=== PATIENT | male | born 1950 | race Asian ===

== ENCOUNTER 2016-11-16 04:07 | Inpatient (IN) | payer OTHER ==
[~2016-11-16] VITALS: Ht 165.1 cm; Wt 78.0 kg
[~2016-11-16 04:07] MED LIST: AMLO2.5T PO; AMLO5TAB2 PO; CELE100C PO; CLOT15CR6; DIAZ2TAB; FINA5TAB4 PO; LOSA25TA5 PO; PHEN-494 PO; PRAV40TA2 PO; SAXA5TAB PO; SULF1TAB3 PO; TRIA1CAP3 PO
[2016-11-16] MEDS ORDERED: SAXA5TAB PO (05:01)
[2016-11-16] MEDS ORDERED: MINO100C PO (05:01)
[2016-11-16] MEDS ORDERED: EZET10TA3 PO (05:01)
[2016-11-16] MEDS ORDERED: AZIT250T PO (05:01)
[2016-11-16] MEDS ORDERED: VALS40TA2 PO (05:01)
[2016-11-16] MEDS ORDERED: CARV6.2512 PO (05:01)
[2016-11-16] MEDS ORDERED: ONDANSETRON 2MG/ML, 2ML ONE (05:03)
[2016-11-16] MEDS ORDERED: SODIUM CHLORIDE 0.9% 1,000 ML IV ONE (05:22)
[2016-11-16] MEDS ORDERED: SODIUM CHLORIDE 0.9% 1,000ML IVBOLUS ONE (05:30)
[2016-11-16] MEDS ORDERED: ONDANSETRON 2MG/ML, 2ML IVP ONE (05:30)
[2016-11-16] MEDS ORDERED: SODIUM CHLORIDE FLUSH 10ML SYR IVF ONE (05:30)
[2016-11-16 06:19] LABS: ASPARTATE AMINO TRANSFERASE 38 U/L (15-37); BLOOD UREA NITROGEN 9 mg/dL (7-18)
[2016-11-16 06:24] LABS: IS PT STATUS REG ER OR PRE ER? YES
[2016-11-16] MEDS ORDERED: POTASSIUM CHLORIDE 20 MEQ TAB.ER.PRT ONE (06:52)
[2016-11-16] MEDS ORDERED: POTASSIUM CHLORIDE 20 MEQ TAB.ER.PRT PO ONE (07:00)
[2016-11-16 07:55] VITALS: BP 129/72
[2016-11-16] MEDS ORDERED: DIAZEPAM 2 MG TABLET PO PRN (10:00)
[2016-11-16] MEDS ORDERED: GUAIFENESIN/DM 200-20MG, 10ML UDC PO PRN (10:30)
[2016-11-16] MEDS ORDERED: GLUCAGON 1 MG IM PRN (10:30)
[2016-11-16] MEDS ORDERED: ONDANSETRON 2MG/ML, 2ML IVP PRN (10:30)
[2016-11-16] MEDS ORDERED: PROMETHAZINE 25 MG/ML, 1ML IM PRN (10:30)
[2016-11-16] MEDS ORDERED: DEXTROSE 4 GM TAB.CHEW PO PRN (10:30)
[2016-11-16] MEDS ORDERED: DEXTROSE 50%, 50ML SYRINGE IVPush PRN (10:30)
[2016-11-16] MEDS: INSULIN ASPART 100 UNITS/ML, PEN SQ-INSULIN SCH ×3 (11:00→21:00)
[2016-11-16] MEDS: NS + 20MEQ KCL 1,000 ML IV SCH ×2 (14:35→23:26)
[2016-11-16] MEDS: ENOXAPARIN 40 MG/0.4 ML SQ SCH (14:36)
[2016-11-16 16:19] VITALS: BP 136/81
[2016-11-16 19:33] VITALS: BP 151/89
[2016-11-16] MEDS: SODIUM CHLORIDE FLUSH 10ML SYR IVF SCH (21:00)
[2016-11-16] MEDS: CARVEDILOL 6.25 MG TABLET PO SCH (21:11)
[2016-11-17 01:40] VITALS: BP 125/76
[2016-11-17] MEDS: NS + 20MEQ KCL 1,000 ML IV SCH ×2 (05:04→13:06)
[2016-11-17 05:25] LABS: ASPARTATE AMINO TRANSFERASE 40 U/L (15-37); BLOOD UREA NITROGEN 7 mg/dL (7-18); TOTAL IRON BINDING CAPACITY 264 mcg/dL (250-450)
[2016-11-17 07:11] VITALS: BP 139/74
[2016-11-17] MEDS: INSULIN ASPART 100 UNITS/ML, PEN SQ-INSULIN SCH ×3 (08:34→16:00)
[2016-11-17] MEDS: ENOXAPARIN 40 MG/0.4 ML SQ SCH (08:36)
[2016-11-17] MEDS: CARVEDILOL 6.25 MG TABLET PO SCH (08:37)
[2016-11-17] MEDS ORDERED: VALSARTAN 80 MG TABLET PO SCH (09:00)
[2016-11-17] MEDS ORDERED: FINASTERIDE 5 MG TABLET PO SCH (09:00)
[2016-11-17] MEDS: SODIUM CHLORIDE FLUSH 10ML SYR IVF SCH (09:00)
[2016-11-17] MEDS ORDERED: AMLODIPINE 5 MG TABLET PO SCH (09:00)
[2016-11-17] MEDS ORDERED: POTASSIUM PHOSPHATE 44 MEQ in SODIUM CHLORIDE 0.9% 500 ML IV ONE ×2 (11:30→14:30)
[2016-11-17 12:41] VITALS: BP 148/77
[2016-11-17] MEDS ORDERED: POTASSIUM CHLORIDE 20 MEQ TAB.ER.PRT PO ONE (14:00)
[2016-11-17] MEDS ORDERED: NEUTRA PHOS K 250 MG TABLET PO STA (14:30)
== END 2016-11-17 16:57 | disposition home or self-care (01) | DRG 392 ==
LOC: ED 04:11 → EDIP 07:08 → 3NE 07:44
PROVIDERS: ADMIT Hospitalist; ATTEND Internal Medicine
DX: A08.4 Viral intestinal infection, unspecified (principal); E87.1 Hypo-osmolality and hyponatremia; H81.09 Meniere's disease, unspecified ear; I10 Essential (primary) hypertension; J06.9 Acute upper respiratory infection, unspecified; E11.9 Type 2 diabetes mellitus without complications; E78.00 Pure hypercholesterolemia, unspecified; E78.5 Hyperlipidemia, unspecified; E83.39 Other disorders of phosphorus metabolism; E87.6 Hypokalemia; K21.9 Gastro-esophageal reflux disease without esophagitis; N40.0 Benign prostatic hyperplasia without lower urinary tract symptoms; Z87.891 Personal history of nicotine dependence; Z88.0 Allergy status to penicillin; Z88.5 Allergy status to narcotic agent; Z90.49 Acquired absence of other specified parts of digestive tract; Z79.899 Other long term (current) drug therapy
CPT/HCPCS: 36415; 71010; 80053; 81003; 82010; 82803; 82962; 83540; 83550; 83735; 84100; 84484; 85025; 87324; 93005; 96361; 96374; J1650; J2405; J3480; J7030; J7040

== ENCOUNTER 2017-11-30 08:26 | Emergency (ER) | payer MEDICARE, OTHER ==
[~2017-11-30] VITALS: Ht 170.2 cm; Wt 79.1 kg
[~2017-11-30 08:26] MED LIST changes: +AZIT250T PO; +CARV6.2512 PO; +EZET10TA18 PO; +MINO100C PO; -PHEN-494 PO; +PHEN-583 PO; +SULF-169 PO; -SULF1TAB3 PO; +VALS40TA2 PO
[2017-11-30 08:28] VITALS: BP 151/87
[2017-11-30] MEDS ORDERED: ONDANSETRON ODT 4 MG ONE (09:16)
[2017-11-30] MEDS ORDERED: ONDANSETRON ODT 4 MG PO ONE (09:30)
[2017-11-30] MEDS ORDERED: SODIUM CHLORIDE FLUSH 10ML SYR IVF ONE (09:30)
[2017-11-30 10:02] LABS: MICROSCOPIC NOT IND
[2017-11-30 10:07] LABS: CULTURE INDICATED? NO
[2017-11-30 10:10] LABS: ALANINE AMINOTRANSFERASE 32 U/L (12-78); ALBUMIN 3.7 g/dL (3.4-5.0); ANION GAP 6 mmol/L (5-15); CALCIUM 8.7 mg/dL (8.5-10.1); CHLORIDE 103 mmol/L (98-107); CREATININE 1.11 mg/dL (0.7-1.3)
[2017-11-30 10:12] LABS: ALKALINE PHOSPHATASE 65 U/L (45-117); BILIRUBIN,TOTAL 2.3 mg/dL (0.2-1.0); TOTAL PROTEIN 7.3 g/dL (6.4-8.2)
[2017-11-30 10:23] LABS: BASOPHILS # (AUTO) 0.03 x10^3/uL (0-0.1); BASOPHILS % (AUTO) 0 % (0-1); EOSINOPHILS # (AUTO) 0.03 x10^3/uL (0-0.4); EOSINOPHILS % (AUTO) 0 % (1-7); LYMPHOCYTES # (AUTO) 0.82 x10^3/uL (1-3.4); LYMPHOCYTES % (AUTO) 5 % (22-44); MD NO; MEAN CORPUSCULAR HEMOGLOBIN 22.5 pg (27.5-34.5); MEAN CORPUSCULAR HGB CONC 32.5 g/dL (33.2-36.2); MEAN CORPUSCULAR VOLUME 69.2 fL (81-97); MEAN PLATELET VOLUME 9.1 fL (7.4-10.4); MONOCYTES # (AUTO) 0.33 x10^3/uL (0.2-0.8); MONOCYTES % (AUTO) 2 % (2-9); NEUTROPHILS # (AUTO) 14.41 x10^3/uL (1.8-6.8); NEUTROPHILS % (AUTO) 92 % (42-75); PLATELET COUNT 207 x10^3/uL (130-400); RED BLOOD COUNT 7.02 x10^6/uL (4.38-5.82); RED CELL DISTRIBUTION WIDTH 15.7 % (9.4-14.8)
[2017-11-30] MEDS ORDERED: CIPROFLOXACIN/PMX 400MG/200ML 200 ML ONE (10:29)
[2017-11-30] MEDS ORDERED: METRONIDAZOLE PMX 500MG/100ML 100 ML ONE (10:29)
[2017-11-30] MEDS ORDERED: CIPROFLOXACIN/PMX 400MG/200ML 100 ML IVPB ONE (10:30)
[2017-11-30] MEDS ORDERED: METRONIDAZOLE PMX 500MG/100ML 100 ML IVPB ONE (10:30)
== END 2017-11-30 12:12 | disposition home or self-care (01) ==
LOC: ED 09:17
DX: K57.32 Diverticulitis of large intestine without perforation or abscess without bleeding (principal); I10 Essential (primary) hypertension; E11.9 Type 2 diabetes mellitus without complications; E78.5 Hyperlipidemia, unspecified; K21.9 Gastro-esophageal reflux disease without esophagitis; E78.00 Pure hypercholesterolemia, unspecified; E87.6 Hypokalemia; E87.1 Hypo-osmolality and hyponatremia
CPT/HCPCS: 36415; 74176; 80053; 81003; 83690; 85025; 96365; 96375; 99285; J0744

== ENCOUNTER 2018-01-10 08:41 | Day surgery (SDC) | payer MEDICARE, OTHER ==
[~2018-01-10] VITALS: Ht 170.2 cm; Wt 77.7 kg
[~2018-01-10 08:41] MED LIST changes: +ASCO500T8 PO; +BUPIVACAINE/PF-EPI 0.25% 1:200K ONE; +CALC-39 PO; +CYAN1TAB29 PO; +GLUC1TAB55 PO; +M-171CAP PO; +MILK THISTLE PO; +OMEG1CAP6 PO; +PANT40TA5 PO; +PROBIOTIC PO; +VIT1TABL32 PO; +VITAMIN D3 PO; +[UNRECOGNIZED DRUG - OTHER] PO
[2018-01-10] MEDS ORDERED: LACTATED RINGERS 1,000 ML IV SCH (09:35)
[2018-01-10] MEDS ORDERED: GABAPENTIN 300 MG CAPSULE PO ONE (10:00)
[2018-01-10] MEDS ORDERED: ONDANSETRON ODT 8 MG PO ONE (10:00)
[2018-01-10] MEDS ORDERED: SCOPOLAMINE PATCH, 1.5MG PATCH.TD72 TD ONE (10:00)
[2018-01-10] MEDS ORDERED: ACETAMINOPHEN 500 MG TABLET PO ONE (10:00)
[2018-01-10 10:01] VITALS: BP 140/89
[2018-01-10] MEDS ORDERED: MIDAZOLAM 1 MG/ML, 2ML ONE (10:56)
[2018-01-10] MEDS ORDERED: FENTANYL PF 100 MCG/2ML ONE ×2 (10:56→12:59)
[2018-01-10] MEDS ORDERED: CLINDAMYCIN 150 MG/ML, 6ML ONE (11:24)
[2018-01-10] MEDS ORDERED: METOCLOPRAMIDE 5 MG/ML, 2ML ONE (11:26)
[2018-01-10] MEDS ORDERED: EPHEDRINE 50 MG/ML, 1ML ONE (11:26)
[2018-01-10] MEDS ORDERED: MEPERIDINE/PF 25MG/0.5ML IVPush PRN (12:00)
[2018-01-10] MEDS ORDERED: PROMETHAZINE 25 MG/ML, 1ML IV PRN (12:00)
[2018-01-10] MEDS ORDERED: hydrALAzine 20 MG/ML, 1ML IV PRN (12:00)
[2018-01-10] MEDS ORDERED: PROMETHAZINE 25 MG SUPP PR PRN (12:00)
[2018-01-10] MEDS ORDERED: ALBUTEROL/IPRATROPIUM 2.5MG/0.5MG, 3 ML NPPB PRN (12:00)
[2018-01-10] MEDS ORDERED: DIAZEPAM 5 MG/ML, 2ML IVPush PRN (12:00)
[2018-01-10] MEDS ORDERED: HYDROmorphone 1 MG/ML, 1ML IV PRN (12:00)
[2018-01-10] MEDS ORDERED: DIPHENHYDRAMINE 50 MG/ML, 1ML IVPush PRN ×2 (12:00)
[2018-01-10] MEDS ORDERED: LABETALOL 5MG/ML, 20ML IV PRN (12:00)
[2018-01-10] MEDS ORDERED: MIDAZOLAM 1 MG/ML, 2ML IV PRN (12:00)
[2018-01-10] MEDS ORDERED: OXYcodone 5 MG/5 ML ORAL.SOL UDC PO PRN (12:00)
[2018-01-10] MEDS ORDERED: ONDANSETRON ODT 8 MG PO PRN (12:00)
[2018-01-10] MEDS ORDERED: CEFAZOLIN 1,000 MG ONE (12:18)
[2018-01-10] MEDS ORDERED: PROPOFOL 10 MG/ML, 20ML ONE (12:18)
[2018-01-10] MEDS ORDERED: ONDANSETRON 2MG/ML, 2ML ONE (12:18)
[2018-01-10] MEDS ORDERED: DEXAMETHASONE 4 MG/ML, 1ML ONE (12:18)
[2018-01-10] MEDS ORDERED: OXYcodone 5 MG/5 ML ORAL.SOL UDC ONE (13:00)
[2018-01-10] MEDS: FENTANYL PF 100 MCG/2ML IV PRN ×2 (13:04→13:24)
== END 2018-01-10 15:35 ==
LOC: OUT 08:41
PROVIDERS: ATTEND Surgery
DX: K40.90 Unilateral inguinal hernia, without obstruction or gangrene, not specified as recurrent (principal); D17.6 Benign lipomatous neoplasm of spermatic cord; E11.9 Type 2 diabetes mellitus without complications; I10 Essential (primary) hypertension; K21.9 Gastro-esophageal reflux disease without esophagitis; E78.5 Hyperlipidemia, unspecified; G47.33 Obstructive sleep apnea (adult) (pediatric); Z90.49 Acquired absence of other specified parts of digestive tract; Z87.891 Personal history of nicotine dependence
CPT/HCPCS: 49505; 82962; 93005; C1781; J0690; J1100; J2250; J2704; J2765; J3010; J7120; Q0162; J2405

== ENCOUNTER → 2018-12-24 | Outpatient (CLI) | payer MEDICARE ==
[~2018-12-24] MED LIST changes: +AMLO-150 PO; -AMLO2.5T PO; +AMLO2.5T5 PO; -AMLO5TAB2 PO; -BUPIVACAINE/PF-EPI 0.25% 1:200K ONE; +LOSA25TA25 PO; -LOSA25TA5 PO
== END | disposition home or self-care (01) ==
LOC: CFH 08:18
DX: F17.210 Nicotine dependence, cigarettes, uncomplicated (principal)
CPT/HCPCS: 76706